=== PATIENT | male | born 1995 | race Hispanic/Latino ===

== ENCOUNTER 2022-08-17 17:13 | Emergency (ER) | payer OTHER ==
[2022-08-17] VITALS (8 sets, daily range): BP systolic 89–109; BP diastolic 48–69
[~2022-08-17] VITALS: Ht 152.4 cm; Wt 54.0 kg
[2022-08-17] MEDS ORDERED: METHOCARBAMOL500 MG PO ×2 (20:24→20:26)
[2022-08-17] MEDS ORDERED: NAPROXEN500 MG PO ×2 (20:24→20:26)
[2022-08-17 20:27] LABS: URINE BILIRUBIN - DIPSTICK NEGATIVE (NEGATIVE); URINE BLOOD DIPSTICK NEGATIVE (NEGATIVE); URINE COLOR YELLOW; URINE GLUCOSE - DIPSTICK NEGATIVE (NEGATIVE); URINE KETONE NEGATIVE (NEGATIVE); URINE LEUK ESTERASE NEGATIVE (NEGATIVE); URINE PROTEIN - DIPSTICK NEGATIVE (NEG-TRACE); URINE SPECIFIC GRAVITY 1.025; URINE UROBILINOGEN - DIPSTICK 0.2 E.U./dL (0.2)
[2022-08-17 20:28] LABS: URINE NITRITE - DIPSTICK NEGATIVE (Negative)
== END 2022-08-17 21:16 | disposition home or self-care (01) | DRG 552 ==
LOC: ED 17:13
PROVIDERS: Nurse Practitioner
DX: M54.50 Low back pain, unspecified (principal); Z20.822 Contact with and (suspected) exposure to COVID-19